=== PATIENT | male | born 1955 | race Caucasian/White ===

== ENCOUNTER 2019-06-08 18:22 | Emergency (ER) | payer SELFPAY ==
[~2019-06-08] VITALS: Ht 198.1 cm; Wt 88.5 kg
--- NOTE | 2019-06-08 18:22 | NUR ---
PT BIBA BLS ER BED 03
[2019-06-08 18:23] VITALS: BP 120/82
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
[2019-06-08] MEDS ORDERED: IBUPROFEN 600 MG TAB PO ONE (19:10)
--- NOTE | 2019-06-08 19:22 | NUR ---
X-Ray at bedside.
--- NOTE | 2019-06-08 20:23 | NUR ---
EMT AT BEDSIDE.
[2019-06-08 21:00] VITALS: BP 120/82
--- NOTE | 2019-06-08 21:00 | NUR ---
Patient discharged with v/s stable. Written and verbal after care instructions given and explained. Patient alert, oriented and verbalized understanding of instructions. Wheel Chair Assisted with to home. All questions addressed prior to discharge. ID band removed. Patient advised to follow up with PMD. Rx of NORCO given. Patient educated on indication of medication including possible reaction and side effects. Opportunity to ask questions provided and answered. Addendum: 06/08/19 at 2145 by ANA DISCHARGED BY DR. BENITO.
== END 2019-06-08 21:00 | disposition home or self-care (01) ==
LOC: MED 18:22
DX: S42.352A Displaced comminuted fracture of shaft of humerus, left arm, initial encounter for closed fracture (principal); R42 Dizziness and giddiness; F32.9 Major depressive disorder, single episode, unspecified; F41.9 Anxiety disorder, unspecified; W19.XXXA Unspecified fall, initial encounter; Y93.89 Activity, other specified; Y92.89 Other specified places as the place of occurrence of the external cause; Y99.8 Other external cause status
CPT/HCPCS: 29105; 73020; 73060; 99283; Q0092